=== PATIENT | male | born 1940 | race Hispanic/Latino ===

== ENCOUNTER 2020-06-02 06:10 | Emergency (ER) | payer OTHER, MEDICARE ==
[2020-06-02 07:28] LABS: Absolute Lymphocytes (CBC) 0.3 K/uL (0.7-4.9); Basophils % 0.5 % (0-1.3); Hematocrit 37.8 % (39.6-49.0); Lymphocytes % 9.5 % (15.3-44.8); MPV 8.6 fL (7.6-11.3); RBC Red Blood Cell Count 3.76 M/uL (4.33-5.43)
[2020-06-02 08:13] LABS: BUN Blood Urea Nitrogen 24 mg/dL (7-18); Glucose Level 124 mg/dL (74-106); Potassium 3.9 mmol/L (3.5-5.1); Sodium Level 146 mmol/L (136-145)
[2020-06-02 08:15] LABS: Bicarbonate > 45 mmol/L (21-32)
--- NOTE | 2020-06-02 08:16 | RAD REPORT ---
EXAM DESCRIPTION: RAD - Femur Left - 06/02/2020 7:13 am CLINICAL HISTORY: Left leg pain FINDINGS: Moderately displaced intertrochanteric fracture left femur extends to the lesser and great er trochanters. Osteoporosis Cortical regularity involves the patella. Lateral view was not obtained limiting evaluation. If the p atient has patellar pain then dedicated x-rays of the left knee would be recommended
[2020-06-02] MEDS ORDERED: FENTANYL CITR 100 MCG/2 ML ONE ×2 (08:22→11:09)
[2020-06-02 08:56] LABS: Blood Morphology Comment NOT SEEN (NOT SEEN); Platelet Estimate DECR; White Blood Cell Scan OK
--- NOTE | 2020-06-02 09:15 | ER ---
Nurse's Notes [facility] Name: Josué Reina Age: 80 yrs Sex: Male : 1940 Arrival Date: 06/02/2020 Time: 06:16 Bed 16 Private MD: Diagnosis: Fall on same level from slipping, tripping and stumbling;Intertrochanteric fracture of femur Presentation: 06/02 06:16 Chief complaint: EMS states: "Patient fell in bathroom, he's unsure is he loss vc consciousness he stated he doesn't remember, c-spine was clear but we noticed an outward rotation to left hip, vitals on scene were 123/80, pulse in the 90's with a-fib on monitor. Patient is on eliquis.". Care prior to arrival: Placed on backboard. Medication(s) given: 100 mg fentanyl IV initiated. 18 GA, in the left antecubital area, Oxygen administered. via nasal cannula. Mechanism of Injury: Fall from standing position. Trauma event details: Injury occurred in the [facility], Injury occurred: at home. Injury occurred: June 02, 2020. 06:16 Acuity: KOMAL 2 vc 06:16 Method Of Arrival: EMS: [facility] vc 06:16 Initial Sepsis Screen: Does the patient meet any 2 criteria? No. Patient's initial vc sepsis screen is negative. Does the patient have a suspected source of infection? No. Patient's initial sepsis screen is negative. Risk Assessment: Do you want to hurt yourself or someone else? Patient reports no desire to harm self or others. Onset of symptoms was June 02, 2020. 06:55 Coronavirus screen: Client denies travel out of the [place] in the last 14 days. shortness vc of breath, At this time, the client does not indicate any symptoms associated with coronavirus-19. Ebola Screen: No symptoms or risks identified at this time. Historical: - Allergies: 06:53 No Known Allergies; vc - Home Meds: 06:53 metoprolol tartrate 25 mg Oral tab 1 tab 2 times per day [Active]; levothyroxine 125 vc mcg tab 1 tab once daily [Active]; bumetanide 1 mg Oral tab 1 tab once daily [Active]; digoxin 125 mcg Oral tab 1 tab once daily [Active]; - PMHx: 06:53 Atrial Fib; Hypothyroidism; Cancer; CHF; vc - Immunization history:: Adult Immunizations up to date. Screenin:53 Abuse screen: Denies threats or abuse. Nutritional screening: No deficits noted. vc Tuberculosis screening: No symptoms or risk factors identified. Fall Risk Fall in past 12 months (25 points). No secondary diagnosis (0 pts). IV access (20 points). Ambulatory Aid- None/Bed Rest/Nurse Assist (0 pts). Gait- Weak (10 pts.). Mental Status- Oriented to own ability (0 pts). Total Reilly Fall Scale indicates Low Risk Score (25-44 pts). Fall prevention measures have been instituted. Side Rails Up X 2 Frequent Obs/Assesments occuring As available Patient and Family Educated on Fall Prevention Program and strategies. Primary Survey: 07:27 NO uncontrolled hemorrhage observed. Breathing/Chest: Respiratory pattern: regular, jr10 Respiratory effort: spontaneous. Circulation: Pulses: palpable right dorsalis pedis artery and left dorsalis pedis artery. Disability Alert. Exposure/Environment: Obvious injury(ies) are noted at this time: left leg shortening and rotation. Reassessment. Assessment: 07:22 General: Appears uncomfortable, Behavior is appropriate for age. General: pt reports jr10 fall when going to the bathroom this morning, states "sometimes my legs just give out on me."; pt denies LOC at this time. Pain: Complains of pain in left hip Pain radiates to left leg Pain currently is 8 out of 10 on a pain scale. Quality of pain is described as aching, Is continuous, Aggravated by increased activity, Noted to be quiet/stoic. Neuro: No deficits noted. Level of Consciousness is awake, alert, obeys commands, Oriented to person, place, time, situation, Appropriate for age Speech is normal. Cardiovascular: No deficits noted. Denies chest pain. Respiratory: No deficits noted. Airway is patent Respiratory effort is even, unlabored, Respiratory pattern is regular, symmetrical. GI: No deficits noted. No signs and/or symptoms were reported involving the gastrointestinal system. : No deficits noted. No signs and/or symptoms were reported regarding the genitourinary system. EENT: No deficits noted. No signs and/or symptoms were reported regarding the EENT system. Derm: No deficits noted. No signs and/or symptoms reported regarding the dermatologic system. Musculoskeletal: left leg shortening and rotation noted. 08:42 Reassessment: pt cleaned of urinary incontinence, frost catheter placed, new brief jr10 placed. pt tolerated well. 09:49 Reassessment: Patient and/or family updated on plan of care and expected duration. Pain jr10 level reassessed. Patient is alert, oriented x 3, equal unlabored respirations, skin warm/dry/pink. 10:20 Reassessment: pt family contact information: Mrs. Reina (): [phone]. jr10 10:20 Reassessment: Patient and/or family updated on plan of care and expected duration. Pain jr10 level reassessed. Patient is alert, oriented x 3, equal unlabored respirations, skin warm/dry/pink. Vital Signs: 06:16 BP 113 / 76; Pulse 95; Resp 19; Temp 97.6(O); Pulse Ox 98% on 3.5 lpm NC; Pain 8/10; vc 07:30 BP 111 / 90; Pulse 99; Resp 17; Pulse Ox 96% on 3 lpm NC; Pain 8/10; jr10 08:21 BP 107 / 79; Pulse 85; Resp 16; Pulse Ox 96% on 3 lpm NC; jr10 08:43 BP 113 / 83; Pulse 84; Resp 20; Pulse Ox 96% on 3 lpm NC; jr10 09:49 BP 109 / 48; Pulse 105; Resp 20; Pulse Ox 97% on 3 lpm NC; Pain 6/10; jr10 10:21 BP 109 / 82; Pulse 99; Resp 20; Pulse Ox 100% on 3 lpm NC; Pain 7/10; jr10 11:00 BP 121 / 99; Pulse 105; Resp 18; Pulse Ox 98% on 3 lpm NC; Pain 8/10; jr10 Shreyas Coma Score: 07:30 Eye Response: spontaneous(4). Verbal Response: oriented(5). Motor Response: obeys jr10 commands(6). Total: 15. Trauma Score (Adult): 07:30 Eye Response: spontaneous(1); Verbal Response: oriented(1); Motor Response: obeys jr10 commands(2); Systolic BP: > 89 mm Hg(4); Respiratory Rate: 10 to 29 per min(4); Shreyas Score: 15; Trauma Score: 12 ED Course: 06:16 Patient arrived in ED. cl3 06:16 Mely Murdock FNP-C [facility]. snw 06:16 Luis A Nael MD is Attending Physician. snw 06:20 Arm band placed on left wrist. vc 06:46 Radha Goss RN is Primary Nurse. vc 06:50 Triage completed. vc 06:53 CT Traumagram (Head C Spine CAP wo con) In Process Unspecified. EDMS 07:13 Femur Left XRAY In Process Unspecified. EDMS 07:25 Patient has correct armband on for positive identification. Bed in low position. Call jr10 light in reach. Side rails up X2. Report received from CARMELITA Garcia. Pulse ox on. NIBP on. 07:25 No provider procedures requiring assistance completed. Maintain EMS IV. Dressing jr10 intact. Good blood return noted. Site clean \\T\\ dry. Gauge \\T\\ site: 18# right forearm. Oxygen administration via nasal cannula \\T\\ 3L/min. 07:47 Primary Nurse role handed off by Radha Goss RN jr10 07:47 Lora Nazario, CARMELITA is Primary Nurse. jr10 08:42 Frost cath inserted, using sterile technique, 16 Fr., by ak, balloon inflated, returned jr10 tiffanie urine. Patient tolerated well. 08:49 initiated transfer to [facility]. bd 11:03 pt accepted in transfer to [facility], admin approval give by [place]. 11:11 Patient transferred, IV remains in place. intact, No redness/swelling at site. jr10 Administered Medications: 08:12 Drug: fentaNYL (PF) 50 mcg Route: IVP; Site: right forearm; jr10 08:52 Follow up: Response: No adverse reaction jr10 09:07 Follow up: Response: No adverse reaction; Pain is decreased jr10 09:49 Drug: morphine 4 mg Route: IVP; Site: right forearm; jr10 10:08 Follow up: Response: No adverse reaction; Pain is decreased jr10 11:02 Drug: fentaNYL (PF) 50 mcg Route: IVP; Site: right forearm; jr10 11:08 Follow up: Response: No adverse reaction jr10 Output: 11:00 Urine: 250ml (Frost); Total: 250ml. jr10 Outcome: 09:14 ER care complete, transfer ordered by . snw 10:42 Transferred by ground EMS to [facility], Transfer form completed. jr10 Note: report given to CARMELITA Aguilar 10:42 Condition: stable 10:42 Instructed on the need for transfer, NPO status 11:11 Patient left the ED. jr10 Signatures: Dispatcher [employer] EDMS Madeleine Dyson Shelly, BANK VAULT ATTENDANT-C BANK VAULT ATTENDANT-Ginow Batool Anaya cl3 Radha Goss, RN RN Lora Guerrero RN RN jr10
--- NOTE | 2020-06-02 09:15 | EDPHYS ---
Physician Documentation [facility] Name: Josué Reina Age: 80 yrs Sex: Male : 1940 Arrival Date: 06/02/2020 Time: 06:16 Bed 16 Private MD: ED Physician Luis A Neal HPI: 06/02 06:26 This 80 yrs old Male presents to ER via Unassigned with complaints of Fall Injury. snw 06:26 Details of fall: The patient fell from an upright position, while standing. Onset: The snw symptoms/episode began/occurred suddenly, just prior to arrival. Associated injuries: The patient sustained injury to the abdomen, specifically the left hip, tenderness. Severity of symptoms: At their worst the symptoms were moderate, severe. The patient has not experienced similar symptoms in the past. It is unknown whether or not the patient has recently seen a physician. hx of a. fib, on xarelto. Fell this am in bathroom. Takes Q-debbie, Levothyroxine, Metoprolol, Bumex. Historical: - Allergies: 06:53 No Known Allergies; vc - Home Meds: 06:53 metoprolol tartrate 25 mg Oral tab 1 tab 2 times per day [Active]; levothyroxine 125 vc mcg tab 1 tab once daily [Active]; bumetanide 1 mg Oral tab 1 tab once daily [Active]; digoxin 125 mcg Oral tab 1 tab once daily [Active]; - PMHx: 06:53 Atrial Fib; Hypothyroidism; Cancer; CHF; vc - Immunization history:: Adult Immunizations up to date. ROS: 06:25 Constitutional: Negative for fever, chills, and weight loss, Eyes: Negative for injury, snw pain, redness, and discharge, ENT: Negative for injury, pain, and discharge, Neck: Negative for injury, pain, and swelling, Cardiovascular: Negative for chest pain, palpitations, and edema, Respiratory: Negative for shortness of breath, cough, wheezing, and pleuritic chest pain, Abdomen/GI: Negative for abdominal pain, nausea, vomiting, diarrhea, and constipation, Back: Negative for injury and pain, : Negative for injury, bleeding, discharge, and swelling, Skin: Negative for injury, rash, and discoloration, Neuro: Negative for headache, weakness, numbness, tingling, and seizure, Psych: Negative for depression, anxiety, suicide ideation, homicidal ideation, and hallucinations. 06:25 MS/extremity: Positive for injury or acute deformity, decreased range of motion, pain, tenderness, of the left hip, "heard snap". Exam: 06:24 Constitutional: This is a well developed, well nourished patient who is awake, alert, snw and in no acute distress. Head/Face: Normocephalic, atraumatic. Eyes: Pupils equal round and reactive to light, extra-ocular motions intact. Lids and lashes normal. Conjunctiva and sclera are non-icteric and not injected. Cornea within normal limits. Periorbital areas with no swelling, redness, or edema. ENT: Nares patent. No nasal discharge, no septal abnormalities noted. Tympanic membranes are normal and external auditory canals are clear. Oropharynx with no redness, swelling, or masses, exudates, or evidence of obstruction, uvula midline. Mucous membranes moist. Neck: Trachea midline, no thyromegaly or masses palpated, and no cervical lymphadenopathy. Supple, full range of motion without nuchal rigidity, or vertebral point tenderness. No Meningismus. Chest/axilla: Normal chest wall appearance and motion. Nontender with no deformity. No lesions are appreciated. Cardiovascular: Regular rate and rhythm with a normal S1 and S2. No gallops, murmurs, or rubs. Normal PMI, no JVD. No pulse deficits. Respiratory: Lungs have equal breath sounds bilaterally, clear to auscultation and percussion. No rales, rhonchi or wheezes noted. No increased work of breathing, no retractions or nasal flaring. Abdomen/GI: Soft, non-tender, with normal bowel sounds. No distension or tympany. No guarding or rebound. No evidence of tenderness throughout. Back: No spinal tenderness. No costovertebral tenderness. Full range of motion. Skin: Warm, dry with normal turgor. Normal color with no rashes, no lesions, and no evidence of cellulitis. Neuro: Awake and alert, GCS 15, oriented to person, place, time, and situation. Cranial nerves II-XII grossly intact. Motor strength 5/5 in all extremities. Sensory grossly intact. Cerebellar exam normal. Normal gait. Psych: Awake, alert, with orientation to person, place and time. Behavior, mood, and affect are within normal limits. 06:24 Musculoskeletal/extremity: Extremities: noted in the left hip: decreased ROM, pain, shortened , Circulation is intact in all extremities. Sensation intact. Vital Signs: 06:16 BP 113 / 76; Pulse 95; Resp 19; Temp 97.6(O); Pulse Ox 98% on 3.5 lpm NC; Pain 8/10; vc 07:30 BP 111 / 90; Pulse 99; Resp 17; Pulse Ox 96% on 3 lpm NC; Pain 8/10; jr10 08:21 BP 107 / 79; Pulse 85; Resp 16; Pulse Ox 96% on 3 lpm NC; jr10 08:43 BP 113 / 83; Pulse 84; Resp 20; Pulse Ox 96% on 3 lpm NC; jr10 09:49 BP 109 / 48; Pulse 105; Resp 20; Pulse Ox 97% on 3 lpm NC; Pain 6/10; jr10 10:21 BP 109 / 82; Pulse 99; Resp 20; Pulse Ox 100% on 3 lpm NC; Pain 7/10; jr10 11:00 BP 121 / 99; Pulse 105; Resp 18; Pulse Ox 98% on 3 lpm NC; Pain 8/10; jr10 Shreyas Coma Score: 07:30 Eye Response: spontaneous(4). Verbal Response: oriented(5). Motor Response: obeys jr10 commands(6). Total: 15. Trauma Score (Adult): 07:30 Eye Response: spontaneous(1); Verbal Response: oriented(1); Motor Response: obeys jr10 commands(2); Systolic BP: > 89 mm Hg(4); Respiratory Rate: 10 to 29 per min(4); Shreyas Score: 15; Trauma Score: 12 MDM: 06:47 Patient medically screened. snw 09:06 Data reviewed: vital signs, nurses notes. Data interpreted: Pulse oximetry: on room air snw is 96 %. Interpretation: acceptable. Counseling: I had a detailed discussion with the patient and/or guardian regarding: the historical points, exam findings, and any diagnostic results supporting the discharge/admit diagnosis, the presence of at least one elevated blood pressure reading (>120/80) during this emergency department visit, lab results, radiology results, the need for outpatient follow up, to return to the emergency department if symptoms worsen or persist or if there are any questions or concerns that arise at home. Physician consultation: Dr Harrison was called at 09:07, was contacted at 09:07, regarding regarding transfer, to [facility]. Dr. hurst accepts pt in transfer to [facility] tele. 10:11 Awaiting: Mrs. Reina . snw 06/02 06:23 Order name: Basic Metabolic Panel; Complete Time: 08:29 snw 06/02 06:23 Order name: CBC with Diff; Complete Time: 09:02 snw 06/02 06:23 Order name: CT Traumagram (Head C Spine CAP wo con) snw 06/02 06:23 Order name: Type And Screen; Complete Time: 09:04 snw 06/02 08:47 Order name: ABO/RH no charge; Complete Time: 09:08 EDMS 06/02 08:56 Order name: CBC Smear Scan; Complete Time: 09:02 EDMS 06/02 06:23 Order name: Labs collected and sent; Complete Time: 07:10 snw 06/02 06:23 Order name: Femur Left XRAY; Complete Time: 08:29 snw 06/02 08:10 Order name: Ren; Complete Time: 08:52 snw 06/02 08:10 Order name: NPO; Complete Time: 08:12 snw Administered Medications: 08:12 Drug: fentaNYL (PF) 50 mcg Route: IVP; Site: right forearm; jr10 08:52 Follow up: Response: No adverse reaction jr10 09:07 Follow up: Response: No adverse reaction; Pain is decreased jr10 09:49 Drug: morphine 4 mg Route: IVP; Site: right forearm; jr10 10:08 Follow up: Response: No adverse reaction; Pain is decreased jr10 11:02 Drug: fentaNYL (PF) 50 mcg Route: IVP; Site: right forearm; jr10 11:08 Follow up: Response: No adverse reaction jr10 Disposition: 06/02/20 09:14 Transfer ordered to [facility]. Diagnosis are Fall on same level from slipping, tripping and stumbling, Intertrochanteric fracture of femur. - Reason for transfer: Specialty. - Accepting physician is Dr. Lazaro [place]. - Condition is Stable. - Problem is new. - Symptoms are unchanged. Signatures: Dispatcher [employer] EDMS Mely Murdock, GRAPHITE DISK ASSEMBLER-C GRAPHITE DISK ASSEMBLER-Csnw Radha Goss, RN RN Lora Guerrero RN RN jr10 Corrections: (The following items were deleted from the chart) 11:11 09:14 06/02/2020 09:14 Transfer ordered to [facility]. jr10 Diagnosis is Fall on same level from slipping, tripping and stumbling; Intertrochanteric fracture of femur. Reason for transfer: Specialty. Accepting physician is Dr. Lazaro Marylou. Condition is Stable. Problem is new. Symptoms are unchanged. snw
[2020-06-02] MEDS ORDERED: MORPHINE 4 MG/ML SYR ONE (09:55)
--- NOTE | 2020-06-02 10:23 | RAD REPORT ---
EXAM DESCRIPTION: CT - Head C Spine Cap Wo Con - 06/02/2020 7:39 am CLINICAL HISTORY: The patient is 80 years old and is Male; SMASH INJURY TECHNIQUE: Axial computed tomography images of the head/brain and cervical spine without intravenous contrast. Sagittal and coronal reformatted images were created and reviewed. This CT exam was pe rformed using one or more of the following dose reduction techniques: automated exposure control, a djustment of the mA and/or kV according to patient size, and/or use of iterative reconstruction techn ique. COMPARISON: No relevant prior studies available. FINDINGS: Brain: Unremarkable. No hemorrhage. No significant white matter disease. No edema. Ventricles: Unremarkable. No ventriculomegaly. Skull: No acute fracture. Sinuses: Unremarkable as visualized. No acute sinusitis. Mastoid air cells: Trace left mastoid fluid. Right mastoid air cells are clear. Dental: Chronic left maxillary sinus disease, likely dental origin. Vertebrae: No acute cervical spine fracture. Normal alignment. Discs/spinal canal/neural foramina: Degenerative disc disease C5-6 and C6-7. No spinal canal stenosis. Soft tissues: Unremarkable. Pleural space: Centrilobular emphysema. No apical pneumothorax. A single impression for all exams can be found at the end of this report CT Chest, Abdomen and Pelvis Without Intravenous Contrast CLINICAL HISTORY: The patient is 80 years old and is Male; SMASH INJURY TECHNIQUE: Axial computed tomography images of the chest, abdomen and pelvis without intravenous con trast. Sagittal and coronal reformatted images were created and reviewed. This CT exam was perfor med using one or more of the following dose reduction techniques: automated exposure control, adjus tment of the mA and/or kV according to patient size, and/or use of iterative reconstruction technique . COMPARISON: No relevant prior studies available. FINDINGS: CHEST: Lungs: Centrilobular emphysema. Elongated area of opacification in the lingula with irregular margins, 3 cm in greatest dime nsion. Small satellite nodules. Pleural space: Small left pleural effusion. No pneumothorax. Heart: Cardiomegaly. Trace pericardial fluid. ABDOMEN: Liver: Unremarkable. Gallbladder and bile ducts: Unremarkable. No calcified stones. No ductal dilation. Pancreas: Pancreatic parenchymal calcifications consistent with chronic pancreatitis. Pancreatic duct dilatation. No findings to suggest acute pancreatitis. Spleen: Unremarkable. No splenomegaly. Adrenals: Unremarkable. No mass. Kidneys and ureters: Bilateral nephrolithiasis, including calculi at the right UPJ. The largest is a 14 x 9 x 14 mm calculus at the right UPJ without hydronephrosis. No left-sided hydronephrosis or ureter stone. Stomach and bowel: Colonic diverticulosis. No bowel dilatation or obstruction. No bowel wall thickening. PELVIS: Appendix: No findings to suggest acute appendicitis. Bladder: Diffuse bladder wall thickening with pericystic fat stranding. No stones. Reproductive: Scattered prostate gland implants. Prostate gland is enlarged. CHEST, ABDOMEN and PELVIS: Intraperitoneal space: Small amount of free fluid in the pelvis. No free air. Bones/joints: Comminuted distracted left intertrochanteric femur fracture. Displaced sternal fracture, old/chronic favored over acute. Old left rib fractures. No sternoclavicular joint dislocation. Bilateral SI joint ankylosis. Degenerative changes in the hips. No dislocation. Bone demineralization. Multilevel degenerative changes in the spine. Mild scoliosis. Soft tissues: Ventral abdominal wall hernia containing fat only. No evidence of edema/incarcerat ion. Vasculature: Unremarkable. No aortic aneurysm. Lymph nodes: No pathologically enlarged mediastinal or hilar lymph nodes. A single impression for all exams can be found at the end of this report IMPRESSION: CT Head and Cervical Spine Without Intravenous Contrast: 1. No intracranial hemorrhage. No acute skull fracture. 2. 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 3. No acute cervical spine fracture. 4. Degenerative disc disease C5-6 and C6-7. CT Chest, Abdomen and Pelvis Without Intravenous Contrast: 1. Comminuted distracted left intertrochanteric femur fracture. 2. Centrilobular emphysema. 3. Elongated area of opacification in the lingula with irregular margins, 3 cm in greatest dimensio n. Small satellite nodules. This may represent infection, however, follow-up after an appropriate cou rse of treatment is suggested. Consider a non-contrast Chest CT at 3 months, a PET/CT, or tissue samp ling. These guidelines do not apply to immunocompromised patients and patients with cancer. Follow up in pa tients with significant comorbidities as clinically warranted. For lung cancer screening, adhere to L gisella-RADS guidelines. Reference: Radiology. 2017; 284(1):228-43. 4. Small left pleural effusion. 5. Displaced sternal fracture, old/chronic favored over acute. Clinical correlation suggested. 6. Chronic pancreatitis. 7. Bilateral nephrolithiasis, including calculi at the right UPJ. The largest is a 14 x 9 x 14 mm c alculus at the right UPJ without hydronephrosis. 8. Colonic diverticulosis. 9. Diffuse bladder wall thickening with pericystic fat stranding. Findings are suspicious for cysti tis/UTI. 10. Scattered prostate gland implants. Prostate gland is enlarged. 11. Additional non-emergent findings as above. Electronically signed by: Lauren Huff MD 06/02/2020 7:22 AM CDT Due to temporary technical issues with the PACS/Fluency reporting system, reports are being signed by the in house radiologist without review as a courtesy to ensure prompt reporting. The interpreting r adiologist is fully responsible for the content of the report.
== END 2020-06-02 11:11 | disposition short-term general hospital (02) ==
LOC: ER 06:10
DX: S72.142A Displaced intertrochanteric fracture of left femur, initial encounter for closed fracture (principal); W01.0XXA Fall on same level from slipping, tripping and stumbling without subsequent striking against object, initial encounter; Y93.9 Activity, unspecified; Y92.002 Bathroom of unspecified non-institutional (private) residence as the place of occurrence of the external cause; Z79.01 Long term (current) use of anticoagulants; E03.9 Hypothyroidism, unspecified; I48.91 Unspecified atrial fibrillation; I50.9 Heart failure, unspecified
CPT/HCPCS: 85025; 80048; 36415; 86900; 86850; 86901; 70450; 71250; 72125; 73552; J3010 ×2; 51702; 96374; 96375; 99285